=== PATIENT | female | born 1980 | race Caucasian/White ===

== ENCOUNTER 2016-12-29 13:39 | Emergency (ER) | payer OTHER ==
[~2016-12-29] VITALS: Ht 162.6 cm; Wt 52.5 kg
[~2016-12-29 13:39] MED LIST: ANAP550T PO; BACT800T5 PO; CEPH500C3 PO
[2016-12-29 13:41] VITALS: BP 127/88; PULSE 88; RESP 16; TEMP 98.1; O2SAT 95
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
[2016-12-29] MEDS ORDERED: IBUP-232 PO (15:04)
[2016-12-29] MEDS ORDERED: ROBA750T PO (15:04)
[2016-12-29] MEDS ORDERED: METHOCARBAMOL 500 MG TAB PO ONE (15:15)
[2016-12-29] MEDS ORDERED: IBUPROFEN 600 MG TAB PO ONE (15:15)
== END 2016-12-29 15:22 | disposition home or self-care (01) ==
LOC: NEPB 13:39
DX: S39.012A Strain of muscle, fascia and tendon of lower back, initial encounter (principal); S29.012A Strain of muscle and tendon of back wall of thorax, initial encounter; V49.88XA Car occupant (driver) (passenger) injured in other specified transport accidents, initial encounter; Y92.410 Unspecified street and highway as the place of occurrence of the external cause
CPT/HCPCS: 99283